=== PATIENT | female | born 1965 | race Caucasian/White ===

== ENCOUNTER 2018-12-07 13:11 | Day surgery (SDC) | payer OTHER ==
[~2018-12-07 13:11] MED LIST: ATOR40TA PO; METOPROLOL SUCC25 MG PO; MULTI VITAMIN1 EACH PO; Neurontin 300300 MG PO; PANT40 PO; Synthroid137 MCG PO
--- NOTE | 2018-12-07 14:51 | NUR ---
12/07/18 1451 Vida Nieves UNABLE TO COMPLETE PROCEDURE DUE TO INADEQUATE PREP. PATIENT CALM AND STATES SHE UNDERSTANDS. DR. RAHMAN AT BEDSIDE SUGGESTED LONGER PREP FOR NEXT ATTEMPT. OFFICE WILL CONTACT PATIENT TO SCHEDULE.
== END 2018-12-07 14:51 | disposition home or self-care (01) ==
LOC: ORSCSDS 13:11
PROVIDERS: Surgery
PROC: 0DBN8ZX Excision of Sigmoid Colon, Via Natural or Artificial Opening Endoscopic, Diagnostic (ICD-10-PCS; principal; 2018-12-07 14:30)
DX: Z12.11 Encounter for screening for malignant neoplasm of colon (principal); Z85.038 Personal history of other malignant neoplasm of large intestine; E03.9 Hypothyroidism, unspecified; Z87.891 Personal history of nicotine dependence; Z79.899 Other long term (current) drug therapy
CPT/HCPCS: 88305; J2704; J7120

== ENCOUNTER 2019-03-20 09:01 | Day surgery (SDC) | payer OTHER ==
[~2019-03-20] VITALS: Ht 172.7 cm; Wt 101.2 kg
[~2019-03-20 09:01] MED LIST changes: +CLOP75 PO
== END 2019-03-20 11:30 | disposition home or self-care (01) ==
LOC: ORSCSDS 09:01
PROVIDERS: Surgery
PROC: 0DJD8ZZ Inspection of Lower Intestinal Tract, Via Natural or Artificial Opening Endoscopic (ICD-10-PCS; principal; 2019-03-20 10:15)
DX: Z12.11 Encounter for screening for malignant neoplasm of colon (principal); Z85.038 Personal history of other malignant neoplasm of large intestine; I25.10 Atherosclerotic heart disease of native coronary artery without angina pectoris; E03.9 Hypothyroidism, unspecified; Z79.899 Other long term (current) drug therapy
CPT/HCPCS: J2704; J7120